=== PATIENT | female | born 1980 | race Caucasian/White ===

== ENCOUNTER → 2018-04-05 | Outpatient (CLI) | payer BC ==
[2018-04-05 09:54] LABS: Basophils % (A) 1 %; Eosinophils # (A) 0.1 k/uL (0-0.7); Eosinophils % (A) 1 %; Lymphocytes # (A) 1.6 k/uL (1.0-4.8); Lymphocytes % (A) 33 %; MCHC 32.4 g/dL (31.0-37.0); MCV 95.7 fL (80.0-100.0); Monocytes # (A) 0.4 k/uL (0-1.0); Monocytes % (A) 7 %; Neutrophils # (A) 2.7 k/uL (1.3-7.7); Neutrophils % (A) 55 %; Platelet Count 174 k/uL (150-450); RBC 4.19 m/uL (3.80-5.40); RDW 12.9 % (11.5-15.5); WBC 4.9 k/uL (3.8-10.6)
[2018-04-05 10:06] LABS: Appearance,Urine Cloudy (Clear); Bacteria,Urine Occasional /hpf; Bilirubin,Urine Negative (Negative); Blood,Urine Negative (Negative); Color,Urine Yellow; Glucose,Urine (UA) Negative (Negative); Ketones,Urine Negative (Negative); Leukocyte Esterase,Urine Small (Negative); Mucus,Urine Rare /hpf; Nitrite,Urine Negative (Negative); PH, Urine 6.5 (5.0-8.0); Protein,Urine Negative (Negative); RBC,Urine 1 /hpf (0-5); Specific Gravity,Urine 1.017 (1.001-1.035); Squamous Epithelial Cell,Urine 7 /hpf (0-4); Urobilinogen,Urine <2.0 mg/dL (<2.0); WBC,Urine 7 /hpf (0-5)
[2018-04-05 11:15] LABS: Anion Gap 12 mmol/L; Blood Urea Nitrogen 16 mg/dL (7-17); Carbon Dioxide 24 mmol/L (22-30); Chloride 105 mmol/L (98-107); Glucose 74 mg/dL (74-99); Potassium 4.4 mmol/L (3.5-5.1); Sodium 141 mmol/L (137-145)
== END | disposition home or self-care (01) ==
LOC: LABPAT 09:00
PROVIDERS: ATTEND Obstetrics & Gynecology
DX: Z01.812 Encounter for preprocedural laboratory examination (principal); N94.6 Dysmenorrhea, unspecified; N92.0 Excessive and frequent menstruation with regular cycle
CPT/HCPCS: 80051; 81001; 82565; 82947; 84520; 85025

== ENCOUNTER 2018-04-11 07:01 | Day surgery (SDC) | payer BC ==
[2018-03-30 09:25] VITALS: BMI 22.6
[~2018-04-11 07:01] MED LIST: DEXAMETHASONE SOD PHOSPHATE 10 MG/ML 1 ML VIAL IV ONE; HYDROmorphone 0.5 MG/0.5 ML SYRINGE IVP PRN; LACTATED RINGERS 1,000 ML IV SCH; MORPHINE SULFATE 4 MG/ML SYRINGE IV PRN; ONDANSETRON 4 MG/2 ML VIAL IVP ONE; ONDANSETRON 4 MG/2 ML VIAL IVP PRN; ceFAZolin IN SWFI 2 GM/20 ML SYRINGE IVP ONE
[2018-04-11] MEDS ORDERED: MORPHINE SULFATE (PF) 0.3 MG/0.3 ML SYR ONE (10:28)
[2018-04-11] MEDS ORDERED: PROPOFOL 10 MG/ML 20 ML VIAL IV ONE (10:28)
[2018-04-11] MEDS ORDERED: MIDAZOLAM 2 MG/2 ML VIAL ONE (10:28)
[2018-04-11] MEDS ORDERED: fentaNYL (PF) 50 MCG/ML 2 ML AMP ONE (10:28)
[2018-04-11] MEDS ORDERED: METOCLOPRAMIDE 5 MG/ML 2 ML VIAL IVP PRN (10:32)
[2018-04-11] MEDS ORDERED: SIMETHICONE 80 MG CHEWABLE PO PRN (10:32)
[2018-04-11] MEDS ORDERED: Acetaminophen-Codeine 300-30mg TAB PO PRN ×2 (10:32)
[2018-04-11] MEDS ORDERED: diphenhydrAMINE 50 MG/ML 1 ML VIAL IVP PRN (10:32)
[2018-04-11] MEDS ORDERED: KETOROLAC 30 MG/ML 1 ML VIAL IVP PRN (10:32)
[2018-04-11] MEDS ORDERED: IBUPROFEN 600 MG TAB PO PRN (10:32)
[2018-04-11] MEDS ORDERED: VASOPRESSIN 20 UNIT/ML 1 ML VIAL SQ ONE (10:52)
[2018-04-11] MEDS ORDERED: BACITRACIN 500 UNIT/GM OINT 28.4 GM TUBE TOPICAL ONE (10:52)
--- NOTE | 2018-04-11 11:35 | P.OP ---
Date of Procedure: 04/11/18 Preoperative Diagnosis: #1. Menorrhagia #2. Dysmenorrhea Postoperative Diagnosis: Same Procedure(s) Performed: #1. Vaginal hysterectomy Anesthesia: spinal Surgeon: Vazquez Enamorado Salesperson Furs #1: Dilcia Alcazar Estimated Blood Loss (ml): 100 IV fluids (ml): 600 Urine output (ml): 100 Pathology: other (Uterus) Condition: stable Disposition: PACU Operative Findings: Preoperative pelvic examination demonstrated a 5-6 week slightly anteverted mobile normal shaped uterus with normal adnexa bilaterally. Intraoperatively, there was descensus to approximately +2 to +3 station. There was also incidentally found some degree of rectocele which was left in place. The bilateral ovaries were seen and appeared normal. The fallopian tubes could not be accessed for removal. Clear urine was seen both at the beginning of the case and the end of the case. Description of Procedure: The patient was prepped and draped in usual fashion after spinal anesthesia was administered by the anesthesiologist. A weighted speculum was placed and the bladder drained of approximately 100 mL of clear norman urine. The cervix was grasped with a double-tooth tenaculum and the cervical vaginal mucosa infused circumferentially with diluted vasopressin solution. It was then opened with a scalpel circumferentially and reflected distally both bluntly and sharply. The posterior peritoneum was identified and incised sharply with the Alvarez scissors, then tagged with a stitch of 2-0 Vicryl for later use. The short weighted speculum was replaced the long weighted speculum. Further blunt and sharp dissection utilized to sweep the mucosa distally. The uterosacral ligaments were identified any side and clamped with a curved Santiago-Wheeler clamp, cut , and suture-ligated with a transfixion stitch of 0 Vicryl. Serial bites were taken up the cardinal ligament using a curved Santiago-Wheeler clamp. Each was cut and suture-ligated with a transfixion stitch of 0 Vicryl. After several had been taken on both sides securing the blood vessels, the uterus was inverted posteriorly to isolate the utero-ovarian ligaments on each side. These were clamped with curved Anand Wheeler clamps bilaterally then cut and the specimen sent for pathological diagnoses. The left utero-ovarian pedicle was suture-ligated with a transfixion stitch of 0 Vicryl followed by a free tie of 0 Vicryl. There was some ongoing bleeding between the previous stitch and the cardinal ligament and utero ovarian pedicle which was made hemostatic both with the Bovie and with a [id number] stitch of 0 Vicryl. After ensuring hemostasis along the left-sided pedicles attention was turned the right side where the right utero-ovarian pedicle was suture-ligated with a transfixion stitch of 0 Vicryl followed by free tie of 0 Vicryl. Bleeding on this side was well controlled. The ovaries were seen bilaterally prior to releasing the utero -ovarian pedicles into the abdomen. The long weighted speculum was replaced with a short weighted speculum and the previously placed stitch of 2-0 Vicryl was utilized to close the parietal peritoneum in a pursestring stitch. All ongoing bleeding was noted to be from the vaginal cuff itself. The uterosacral ligaments were then passed through the contralateral ligament and vaginal mucosa on each side in a modified Overton's culdoplasty and firmly tied down. The intervening open vaginal mucosa was closed with interrupted lelslf-[id number]-jxcpz stitches. Any obvious open mucosal sites were cauterized to attempt to decrease the possibility of granulation tissue. The bladder was then catheterized demonstrating clear norman urine. The vagina was packed with one- inch iodoform gauze covered with bacitracin ointment in the instrumentation removed. Estimated blood loss for the entire case was approximately 100 mL. There were no complications. All sponge, instrument, and needle counts were correct. The patient tolerated the procedure well and proceeded to the recovery room in stable condition.
[2018-04-11] MEDS ORDERED: NALBUPHINE 10 MG/ML AMPUL IV PRN (12:31)
[2018-04-11] MEDS ORDERED: NALOXONE 0.4 MG/ML 1 ML VIAL IV PRN (12:31)
[2018-04-11] MEDS: LACTATED RINGERS 1,000 ML IV SCH ×2 (13:00→21:13)
[2018-04-11] MEDS: SENNOSIDES-DOCUSATE SODIUM 1 EACH TAB PO SCH (21:13)
[2018-04-12] MEDS: LACTATED RINGERS 1,000 ML IV SCH (01:49)
--- NOTE | 2018-04-12 07:09 | P.PN ---
Progress Note - Text Progress Note Date: 04/12/18 Postoperative day 1 status post , vaginal hysterectomy, under spinal anesthesia , and intrathecal morphine given for postoperative analgesia, patient doing well , there is no anesthesia related complications, Patient had no headache, vital signs stable , Assessment and plan= postop day 1 , doing well there is no anesthesia related complication.
[2018-04-12 08:08] LABS: Basophils % (A) 0 %; Eosinophils % (A) 0 %; HCT 36.1 % (34.0-46.0); HGB 11.9 gm/dL (11.4-16.0); Lymphocytes # (A) 2.1 k/uL (1.0-4.8); Lymphocytes % (A) 23 %; MCH 31.2 pg (25.0-35.0); MCHC 33.1 g/dL (31.0-37.0); MCV 94.3 fL (80.0-100.0); Mean Platelet Volume 9.5; Monocytes # (A) 0.5 k/uL (0-1.0); Monocytes % (A) 5 %; Neutrophils # (A) 6.3 k/uL (1.3-7.7); Neutrophils % (A) 70 %; Platelet Count 165 k/uL (150-450); RBC 3.83 m/uL (3.80-5.40); RDW 12.8 % (11.5-15.5); WBC 9.1 k/uL (3.8-10.6)
--- NOTE | 2018-04-12 08:42 | P.DS ---
Providers Expected date of discharge: 04/12/18 Attending physician: Vazquez Enamorado Primary care physician: Luciano Mandujano - Discharge Diagnosis(es) (1) Dysmenorrhea Current Visit: Yes Status: Acute (2) Menorrhagia Current Visit: Yes Status: Acute Hospital Course: The patient is a 37-year-old multiparous woman who presented to the office with complaints of increasing menorrhagia and significant dysmenorrhea that interrupted her typical lifestyle. She was counseled regarding different options for treatment and opted to undergo definitive therapy with hysterectomy. She was taken the operating room where she underwent vaginal hysterectomy in an uncomplicated fashion. The ovaries and fallopian tubes were otherwise normal to inspection at the time. Her postoperative course was entirely unremarkable with vital signs remaining stable and her temperature was afebrile throughout. She was deemed stable for discharge by postoperative day # 1 was discharged home to follow-up in the office in 2 weeks for a recheck and 6 weeks routinely. Discharge instructions included calling for any significantly increased bleeding, fever, abdominal pain, urinary or bowel complaints, or anything else that concerned her. She was additionally instructed to have nothing in the vagina for at least 6 weeks time to include intercourse and to abstain from any heavy lifting over the same period of time. She understood all of her instructions and agrees to follow up as noted above. Discharge medications included [id number] analgesic pain medications as well as a prescription for Tylenol No. 3, 1-2 by mouth every 6 hours when necessary pain, #20 dispensed. Discharge hemoglobin and hematocrit were 11.9 and 36.1 respectively. Procedures: #1. Vaginal hysterectomy Patient Condition at Discharge: Good Plan - Discharge Summary Discharge Rx Participant: No New Discharge Prescriptions: No Action Cetirizine HCl [Zyrtec] 10 mg PO DAILY PRN PRN Reason: allergies Discharge Medication List Cetirizine HCl [Zyrtec] 10 mg PO DAILY PRN 03/30/18 [History] Follow up Appointment(s)/Referral(s): Vazquez Enamorado MD [STAFF PHYSICIAN] - 2 Weeks Discharge Disposition: HOME SELF-CARE
[2018-04-12 09:17] VITALS: BP 114/62; PULSE 87; RESP 18; TEMP 98.8
[2018-04-12] MEDS: SENNOSIDES-DOCUSATE SODIUM 1 EACH TAB PO SCH (13:26)
== END 2018-04-12 13:30 | disposition home or self-care (01) ==
LOC: OR 07:01 → 4FBP 11:25 → OR 04-12 13:30
PROVIDERS: ATTEND Obstetrics & Gynecology
DX: D25.9 Leiomyoma of uterus, unspecified (principal); N73.6 Female pelvic peritoneal adhesions (postinfective); N81.6 Rectocele; Z87.891 Personal history of nicotine dependence; Z79.899 Other long term (current) drug therapy
CPT/HCPCS: 81025; 86900; 86901; 85025; 86850; 88307; 58260; J1100; J2405; J1885; J0690

== ENCOUNTER 2018-04-15 20:19 | Emergency (ER) | payer BC ==
[2018-04-15 20:23] VITALS: RESP 18
[2018-04-15] MEDS ORDERED: SODIUM CHLORIDE 0.9% 1,000 ML IV STA (20:46)
[2018-04-15] MEDS ORDERED: ACETAMINOPHEN TAB 500 MG TAB PO STA (20:46)
--- NOTE | 2018-04-15 20:49 | ED ---
Fever HPI <Farshad Solorzano - Last Filed: 04/15/18 22:33> - General Source: patient, RN notes reviewed, old records reviewed Mode of arrival: ambulatory Limitations: no limitations <Scarlett Gil - Last Filed: 04/15/18 23:01> - General Chief Complaint: Fever Stated Complaint: Fever, Chills, Nausea post SX Time Seen by Provider: 04/15/18 20:29 - History of Present Illness Initial Comments: This patient's a 37-year-old female presents to the emergency department 4 days after hysterectomy chief complaint of fever. She has been taking her pain medication as prescribed by her CAFETERIA TABLE ATTENDANT. Patient states that she's had no significant pain in her abdomen or pelvis. Denies any abnormal drainage. It was a transvaginal hysterectomy. Patient states that she does have packing in place. Patient reports that she does have a history of UTIs in the past. She states that she was feeling well earlier today. She reports that she when she was leaving a graduation democrat started to feel ill, no fevers and chills. Patient reports she took her temperature at home and it was 102. She took Motrin and then came to the emergency department for further evaluation. ( Scarlett Gil) - Related Data Home Medications Medication Instructions Recorded Confirmed Cetirizine HCl [Zyrtec] 10 mg PO DAILY PRN 03/30/18 04/15/18 Previous Rx's Medication Instructions Recorded Sulfamethox-Tmp 800-160Mg [Bactrim 1 tab PO Q12HR #14 tab 04/15/18 DS 800-160 mg] Allergies Allergy/AdvReac Type Severity Reaction Status Date / Time No Known Allergies Allergy Verified 04/15/18 20:22 Review of Systems ROS Other: All systems not noted in ROS Statement are negative. <Farshad Solorzano - Last Filed: 04/15/18 22:33> ROS Other: All systems not noted in ROS Statement are negative. <Scarlett Gil - Last Filed: 04/15/18 23:01> ROS Statement: Those systems with pertinent positive or pertinent negative responses have been documented in the HPI. Past Medical History Past Medical History: No Reported History Additional Past Medical History / Comment(s): hx fx rt ankle, seasonal allergies , heavy vaginal bleeding and cramping History of Any Multi-Drug Resistant Organisms: None Reported Past Surgical History: Hysterectomy Additional Past Surgical History / Comment(s): breast augmentation 2014 Past Anesthesia/Blood Transfusion Reactions: No Reported Reaction Past Psychological History: No Psychological Hx Reported Smoking Status: Never smoker Past Alcohol Use History: Occasional Past Drug Use History: None Reported - Past Family History Father Family Medical History: No Reported History <Scarlett Gil - Last Filed: 04/15/18 23:01> General Exam <Farshad Solorzano - Last Filed: 04/15/18 22:33> Limitations: no limitations General appearance: alert, in no apparent distress Head exam: Present: atraumatic, normocephalic, normal inspection Eye exam: Present: normal appearance, PERRL, EOMI. Absent: scleral icterus, conjunctival injection, periorbital swelling ENT exam: Present: normal exam, mucous membranes moist Neck exam: Present: normal inspection. Absent: tenderness, meningismus, lymphadenopathy Respiratory exam: Present: normal lung sounds bilaterally. Absent: respiratory distress, wheezes, rales, rhonchi, stridor Cardiovascular Exam: Present: regular rate, normal rhythm, normal heart sounds. Absent: systolic murmur, diastolic murmur, rubs, gallop, clicks GI/Abdominal exam: Present: soft, normal bowel sounds. Absent: distended, tenderness, guarding, rebound, rigid External exam: Present: normal external exam Speculum exam: Present: normal speculum exam, cervical discharge, vaginal bleeding (Patient appeared to have some minor cervical discharge. Culture obtained. Minimal tenderness on exam.) By manual exam: Present: normal by manual exam Extremities exam: Present: normal inspection, full ROM, normal capillary refill. Absent: tenderness, pedal edema, joint swelling, calf tenderness Back exam: Present: normal inspection Neurological exam: Present: alert, oriented X3, CN II-XII intact Psychiatric exam: Present: normal affect, normal mood Skin exam: Present: warm, dry, intact, normal color. Absent: rash <Scarlett Gil - Last Filed: 04/15/18 23:01> - General Exam Comments Initial Comments: This patient's a 37-year-old female. Alert and oriented. No significant distress. (Scarlett Gil) Vital Signs 04/15/18 20:20 Temperature 100.5 F H Pulse Rate 127 H Respiratory 18 Rate Blood Pressure 126/67 O2 Sat by Pulse 97 Oximetry Medical Decision Making - Lab Data Result diagrams: 04/15/18 21:05 04/15/18 21:05 <Farshad Solorzano - Last Filed: 04/15/18 22:33> - Lab Data Result diagrams: 04/15/18 21:05 04/15/18 21:05 - Radiology Data Radiology results: report reviewed <Scarlett Gil - Last Filed: 04/15/18 23:01> - Medical Decision Making Patient reevaluated by myself, Dr. Solorzano. Patient is resting comfortably in bed. Abdomen including lower abdomen is soft and nontender. Patient states no increase in discomfort since her surgery. Patient updated on results. Case was discussed in detail with Dr. George. He is familiar with this patient. He does attribute lactic acid 2% surgery. He does recommend treatment for UTI and can follow-up with the patient. He recommended she call on Tuesday. He does recommend a dose of Rocephin followed by Bactrim. (Farshad Solorzano) 37-year-old female presents emergency Department with chief complaint of fever for the past day. Had a recent hysterectomy on Tuesday. Patient arrived with a fever of 100.6. Blood cultures lactic acid obtained. Lactic acid mildly elevated at 2.3. Given a liter fluid. Patient was given Tylenol. Take Motrin prior to arrival. Pelvic exam was completed and shows leading, some mild discharge. Culture obtained. She had no significant tenderness on exam. A urinalysis is positive for infection. We will. Urine culture. Patient was given 1 g of Rocephin. We'll treat the Patient with Bactrim for discharge. She can follow-up with her CAFETERIA TABLE ATTENDANT on Tuesday. We did discuss the case with Dr. George. (Scarlett Gil) - Lab Data Lab Results 04/15/18 04/15/18 04/15/18 Range/Units 21:05 21:05 21:05 WBC 7.2 (3.8-10.6) k/uL RBC 3.74 L (3.80-5.40) m/uL Hgb 11.8 (11.4-16.0) gm/dL Hct 34.4 (34.0-46.0) % MCV 92.1 (80.0-100.0) fL MCH 31.5 (25.0-35.0) pg MCHC 34.2 (31.0-37.0) g/dL RDW 12.7 (11.5-15.5) % Plt Count 168 (150-450) k/uL Neutrophils % 87 % Lymphocytes % 6 % Monocytes % 5 % Eosinophils % 1 % Basophils % 0 % Neutrophils # 6.3 (1.3-7.7) k/uL Lymphocytes # 0.5 L (1.0-4.8) k/uL Monocytes # 0.3 (0-1.0) k/uL Eosinophils # 0.1 (0-0.7) k/uL Basophils # 0.0 (0-0.2) k/uL Sodium 142 (137-145) mmol/L Potassium 3.6 (3.5-5.1) mmol/L Chloride 105 (98-107) mmol/L Carbon Dioxide 22 (22-30) mmol/L Anion Gap 15 mmol/L BUN 15 (7-17) mg/dL Creatinine 0.70 (0.52-1.04) mg/dL Est GFR (CKD-EPI)AfAm >90 (>60 ml/min/1.73 sqM) Est GFR (CKD-EPI)NonAf >90 (>60 ml/min/1.73 sqM) Glucose 93 (74-99) mg/dL Plasma Lactic Acid Kalpesh 2.3 H* (0.7-2.0) mmol/L Calcium 9.5 (8.4-10.2) mg/dL Total Bilirubin 0.4 (0.2-1.3) mg/dL AST 19 (14-36) U/L ALT 24 (9-52) U/L Alkaline Phosphatase 48 (38-126) U/L Total Protein 6.3 (6.3-8.2) g/dL Albumin 3.9 (3.5-5.0) g/dL Urine Color Urine Appearance (Clear) Urine pH (5.0-8.0) Ur Specific [place] (1.001-1.035) Urine Protein (Negative) Urine Glucose (UA) (Negative) Urine Ketones (Negative) Urine Blood (Negative) Urine Nitrite (Negative) Urine Bilirubin (Negative) Urine Urobilinogen (<2.0) mg/dL Ur Leukocyte Esterase (Negative) Urine RBC (0-5) /hpf Urine WBC (0-5) /hpf Ur Squamous Epith Cells (0-4) /hpf Urine Bacteria (None) /hpf Urine Mucus (None) /hpf 04/15/18 Range/Units 21:05 WBC (3.8-10.6) k/uL RBC (3.80-5.40) m/uL Hgb (11.4-16.0) gm/dL Hct (34.0-46.0) % MCV (80.0-100.0) fL MCH (25.0-35.0) pg MCHC (31.0-37.0) g/dL RDW (11.5-15.5) % Plt Count (150-450) k/uL Neutrophils % % Lymphocytes % % Monocytes % % Eosinophils % % Basophils % % Neutrophils # (1.3-7.7) k/uL Lymphocytes # (1.0-4.8) k/uL Monocytes # (0-1.0) k/uL Eosinophils # (0-0.7) k/uL Basophils # (0-0.2) k/uL Sodium (137-145) mmol/L Potassium (3.5-5.1) mmol/L Chloride (98-107) mmol/L Carbon Dioxide (22-30) mmol/L Anion Gap mmol/L BUN (7-17) mg/dL Creatinine (0.52-1.04) mg/dL Est GFR (CKD-EPI)AfAm (>60 ml/min/1.73 sqM) Est GFR (CKD-EPI)NonAf (>60 ml/min/1.73 sqM) Glucose (74-99) mg/dL Plasma Lactic Acid Kalpesh (0.7-2.0) mmol/L Calcium (8.4-10.2) mg/dL Total Bilirubin (0.2-1.3) mg/dL AST (14-36) U/L ALT (9-52) U/L Alkaline Phosphatase (38-126) U/L Total Protein (6.3-8.2) g/dL Albumin (3.5-5.0) g/dL Urine Color Light Yellow Urine Appearance Cloudy H (Clear) Urine pH 6.0 (5.0-8.0) Ur Specific [place] 1.008 (1.001-1.035) Urine Protein Negative (Negative) Urine Glucose (UA) Negative (Negative) Urine Ketones Negative (Negative) Urine Blood Small H (Negative) Urine Nitrite Positive H (Negative) Urine Bilirubin Negative (Negative) Urine Urobilinogen <2.0 (<2.0) mg/dL Ur Leukocyte Esterase Large H (Negative) Urine RBC 3 (0-5) /hpf Urine WBC 129 H (0-5) /hpf Ur Squamous Epith Cells 15 H (0-4) /hpf Urine Bacteria Many H (None) /hpf Urine Mucus Rare H (None) /hpf - Radiology Data Chest x-ray and KUB are negative for any acute process. (Scarlett Gil) Disposition <Farshad Solorzano - Last Filed: 04/15/18 22:33> Is patient prescribed a controlled substance at d/c from ED?: No When asked, does pt state using other controlled substances?: No If prescribed controlled substance>3 days was MAPS reviewed?: No If opioid is for acute pain is fill amount 7 days or less?: No If Rx opioid, was Start Talking consent form obtained?: No Time of Disposition: 22:58 <Scarlett Gil - Last Filed: 04/15/18 23:01> Clinical Impression: UTI (urinary tract infection), S/P hysterectomy, Fever Disposition: HOME SELF-CARE Condition: Good Instructions: Urinary Tract Infection in Women (ED) Additional Instructions: Patient has a follow-up on Tuesday with Dr. George for reevaluation. Return to the emergency department if any alarming signs or symptoms occur. Take all antibiotics as prescribed. Prescriptions: Sulfamethox-Tmp 800-160Mg [Bactrim DS 800-160 mg] 1 tab PO Q12HR #14 tab Referrals: Luciano Mandujano MD [Primary Care Provider] - 1-2 days Vazquez Enamorado MD [STAFF PHYSICIAN] - 1-2 days
[2018-04-15] MEDS ORDERED: SODIUM CHLORIDE 0.9% 1,000 ML IV SCH (21:00)
[2018-04-15 21:18] LABS: Basophils % (A) 0 %; Eosinophils # (A) 0.1 k/uL (0-0.7); Eosinophils % (A) 1 %; HCT 34.4 % (34.0-46.0); HGB 11.8 gm/dL (11.4-16.0); Lymphocytes # (A) 0.5 k/uL (1.0-4.8); Lymphocytes % (A) 6 %; MCH 31.5 pg (25.0-35.0); MCHC 34.2 g/dL (31.0-37.0); MCV 92.1 fL (80.0-100.0); Mean Platelet Volume 8.5; Monocytes # (A) 0.3 k/uL (0-1.0); Monocytes % (A) 5 %; Neutrophils # (A) 6.3 k/uL (1.3-7.7); Neutrophils % (A) 87 %; Platelet Count 168 k/uL (150-450); RBC 3.74 m/uL (3.80-5.40); RDW 12.7 % (11.5-15.5); WBC 7.2 k/uL (3.8-10.6)
[2018-04-15 21:19] LABS: Appearance,Urine Cloudy (Clear); Bacteria,Urine Many /hpf; Bilirubin,Urine Negative (Negative); Blood,Urine Small (Negative); Color,Urine Light Yellow; Glucose,Urine (UA) Negative (Negative); Ketones,Urine Negative (Negative); Leukocyte Esterase,Urine Large (Negative); Mucus,Urine Rare /hpf; Nitrite,Urine Positive (Negative); Protein,Urine Negative (Negative); RBC,Urine 3 /hpf (0-5); Specific Gravity,Urine 1.008 (1.001-1.035); Squamous Epithelial Cell,Urine 15 /hpf (0-4); Urobilinogen,Urine <2.0 mg/dL (<2.0); WBC,Urine 129 /hpf (0-5)
[2018-04-15 21:34] LABS: ALT 24 U/L (9-52); AST 19 U/L (14-36); Albumin 3.9 g/dL (3.5-5.0); Alkaline Phosphatase 48 U/L (38-126); Anion Gap 15 mmol/L; Blood Urea Nitrogen 15 mg/dL (7-17); Calcium 9.5 mg/dL (8.4-10.2); Carbon Dioxide 22 mmol/L (22-30); Chloride 105 mmol/L (98-107); Glucose 93 mg/dL (74-99); Potassium 3.6 mmol/L (3.5-5.1); Sodium 142 mmol/L (137-145); Total Bilirubin 0.4 mg/dL (0.2-1.3); Total Protein 6.3 g/dL (6.3-8.2)
--- NOTE | 2018-04-15 21:48 | XR ---
EXAMINATION TYPE: XR chest 2V DATE OF EXAM: 04/15/2018 COMPARISON: NONE TECHNIQUE: PA and lateral views submitted. HISTORY: Pain FINDINGS: The lungs are clear and there is no pneumothorax, pleural effusion, or focal pneumonia. IMPRESSION: 1. No acute process.
--- NOTE | 2018-04-15 21:49 | XR ---
EXAMINATION TYPE: XR KUB DATE OF EXAM: 04/15/2018 COMPARISON: NONE HISTORY: Pain and fever TECHNIQUE: One view abdominal series FINDINGS: The osseous structures are intact. The bowel gas pattern is nonspecific. Lung bases are clear. IMPRESSION: 1. Nonspecific abdomen.
[2018-04-15] MEDS ORDERED: cefTRIAXone IN SWFI 1,000 MG/10 ML SYRINGE IVP STA (22:35)
[2018-04-15 23:24] VITALS: BP 115/68; PULSE 96; TEMP 98.8
== END 2018-04-15 23:24 | disposition home or self-care (01) ==
LOC: EC 20:19
DX: N39.0 Urinary tract infection, site not specified (principal); R79.89 Other specified abnormal findings of blood chemistry; N93.9 Abnormal uterine and vaginal bleeding, unspecified; R11.0 Nausea; Z90.710 Acquired absence of both cervix and uterus
CPT/HCPCS: 36415; 80053; 83605; 85025; 81001; 87040; 87070; 87086; 87205; 71046; 74018; 99284; 96374; 96361 ×2; J0696; 87077; 87186

== ENCOUNTER → 2024-04-12 | Outpatient (CLI) | payer BC ==
--- NOTE | 2024-04-12 21:17 | MM ---
Reason for Exam: Hx of breast augmentation, asymptomatic. Last mammogram was performed 1 year(s) and 1 month(s) ago. Patient History: Menarche at age 12. First Full-Term at age 26. Hysterectomy at age 38. Premenopausal. Patient has history of breast feeding. Bilateral Implants. Risk Values: Emily 5 year model risk: 0.9%. NCI Lifetime model risk: 10.7%. Prior Study Comparison: 03/14/2023 Bilateral MG 3D screen mammo imp/cad., [facility]. Tissue Density: The breasts are heterogeneously dense, which may obscure small masses. Findings: Analyzed By CAD. Bilateral retropectoral silicone implants. There is no suspicious group of microcalcifications or new suspicious mass in either breast. Overall Assessment: Negative, BI-RAD 1 Management: Screening Mammogram of both breasts in 1 year. . Patient should continue monthly self-breast exams. A clinical breast exam by your physician is recommended on an annual basis. This exam should not preclude additional follow-up of suspicious palpable abnormalities. Note on Emily scores and lifetime risk: 1. A Emily score greater than 3% is considered moderate risk. If this is the case, consider specialist referral to assess eligibility for a risk reducing agent. 2. If overall lifetime risk for the development of breast cancer is 20% or higher, the patient may qualify for future screening with alternating mammogram and breast MRI. Electronically signed and approved by: Donta Burgess M.D. Radiologist
== END | disposition home or self-care (01) ==
LOC: RADMAMWWP 12:34
PROVIDERS: ATTEND Pediatrics
DX: Z12.31 Encounter for screening mammogram for malignant neoplasm of breast (principal)
CPT/HCPCS: 77063; 77067

== ENCOUNTER 2024-06-22 21:09 | Emergency (ER) | payer BC ==
--- NOTE | 2024-08-03 11:56 | XR ---
EXAM: XR Chest, 2 Views CLINICAL HISTORY: Palpitations TECHNIQUE: Frontal and lateral views of the chest. COMPARISON: No relevant prior studies available. FINDINGS: Lungs:No consolidation or mass. Pleural space:No effusion. Heart:No cardiomegaly. Bones/joints:No acute findings. IMPRESSION: No acute cardiopulmonary process. Radiologist: Dhaval Angeles MD Electronically Signed: 06/23/24 02:54 Study ready at 00:02 and initial results transmitted at 02:54 [facility]
== END 2024-06-23 01:50 | disposition home or self-care (01) ==
LOC: EC 21:09
DX: R00.2 Palpitations (principal)
CPT/HCPCS: 71046; 99285